=== PATIENT | male | born 1955 | race Caucasian/White ===

== ENCOUNTER 2022-01-23 08:38 | Outpatient (CLI) | payer MEDICARE, BC, SELFPAY ==
--- NOTE | 2022-01-23 08:45 | CRLHL7_ITS ---
For Patients: As a result of the Cures Act, medical imaging exams and procedure reports are released immediately into your electronic medical record. You may view this report before your referring provider. If you have questions, please contact your health care provider. BILATERAL DIAGNOSTIC DIGITAL MAMMOGRAM WITH COMPUTER-AIDED DETECTION AND TOMOSYNTHESIS CLINICAL HISTORY: LEFT breast pain. COMPARISON: None. TECHNIQUE: Digital BILATERAL mammogram in four projections with computer-aided detection and tomosynthesis. BREAST COMPOSITION: There are scattered areas of fibroglandular density. FINDINGS: Minimal bilateral subareolar gynecomastia noted bilaterally. No architectural distortion or suspicious masses. No suspicious calcifications or adenopathy. IMPRESSION: Minimal BILATERAL gynecomastia. No findings concerning for malignancy. RECOMMENDATIONS: Clinical follow-up. BI-RADS Category 2. Benign Results and recommendations discussed with the patient. A lay language report of this examination will be provided to the patient. Dictated by Cristian Rai MD @ 01/23/2022 10:52:35 AM CRL:por RD/Dictated by: Cristian Rai MD @ 01/23/2022 10:52:00 AM (Electronically Signed)
== END 2022-01-23 08:39 | disposition home or self-care (01) ==
LOC: MAMMO 08:42
PROVIDERS: PCP Family Medicine; Visit Provider Family Medicine
DX: N64.4 Mastodynia (principal); N62 Hypertrophy of breast
CPT/HCPCS: 77066; G0279

== ENCOUNTER 2022-02-16 07:31 | Outpatient (CLI) | payer MEDICARE, BC, SELFPAY | END 2022-02-16 07:32 | disposition home or self-care (01) | LOC: OP CLINIC 07:33 | PROVIDERS: PCP Family Medicine; Visit Provider Surgery | DX: Z12.11 Encounter for screening for malignant neoplasm of colon (principal); K63.5 Polyp of colon; Z86.010 Personal history of colon polyps | CPT/HCPCS: 45385; 88305; 99153; J1200; J2250; J3010 ==

== ENCOUNTER 2022-04-17 09:21 | Outpatient (CLI) | payer MEDICARE, BC, SELFPAY ==
[2022-04-17 11:14] LABS: Cholesterol* 178 mg/dL (90-199); HDL Cholesterol* 36 mg/dL (>=40); LDL Cholesterol Calculated 114 mg/dL (<100); Triglycerides* 138 mg/dL (40-149)
== END 2022-04-17 09:22 | disposition home or self-care (01) ==
PROVIDERS: PCP Family Medicine; Visit Provider Internal Medicine
DX: E78.5 Hyperlipidemia, unspecified (principal)
CPT/HCPCS: 80061